=== PATIENT | female | born 1960 | race Caucasian/White ===

== ENCOUNTER 2021-08-14 18:22 | Inpatient (IN) ==
[2021-08-14] MEDS ORDERED: Naloxone 0.4 MG/ML INJ IVP PRN (22:14)
[2021-08-14] MEDS ORDERED: *HR* Heparin 5,000 UNIT/ML VIAL IVP ONE (22:57)
[2021-08-14] MEDS ORDERED: *HR* Heparin 5,000 UNIT/ML VIAL IVP PRN ×2 (22:57)
[2021-08-15] MEDS: Heparin 25,000UNIT/250ML 1/2NS 25,000 UNIT/250 ML IV.SOLN IVC SCH (00:49)
[2021-08-15] MEDS: Carbidopa/Levodopa 25/100 TABLET PO SCH ×4 (00:52→21:38)
[2021-08-15 00:59] LABS: INR 1.2; Prothrombin Time 12.9 Seconds (9.4-12.1)
[2021-08-15 01:05] LABS: Alanine Aminotransferase 7 Units/L (7-52); Albumin 3.8 g/dL (3.5-5.7); Albumin/Globulin Ratio 1.8 (1.1-2.2); Alkaline Phosphatase 114 Units/L (34-104); Aspartate Amino Transferase 19 Units/L (13-39); BUN/Creatinine Ratio 22 (6-26); Bilirubin,Total 0.3 mg/dL (0.3-1.0); Blood Urea Nitrogen 18 mg/dL (8-23); Calcium 9.3 mg/dL (8.6-10.3); Carbon Dioxide 28 mEq/L (23-29); Chloride 106 mEq/L (98-107); Globulin 2.1 g/dL (2.4-3.5); Glucose 86 mg/dL (70-105); Magnesium 1.7 mg/dL (1.6-2.6); Osmolality,Calculated 289 (280-300); Phosphorous 3.1 mg/dL (2.7-4.5); Potassium 3.5 mEq/L (3.5-5.1); Sodium 139 mEq/L (136-145); Total Protein 5.9 g/dL (6.4-8.9); eGFR For African Americans > 60 (> 60); eGFR For Non-African Americans > 60 (> 60)
[2021-08-15 01:21] LABS: Basophils % 0.5 %; Hematocrit 37.7 % (35.3-44.9); Mean Corpuscular Volume 92.9 fL (83.0-100.0); Red Blood Count 4.06 M/mcL (3.82-4.97)
[2021-08-15 01:23] LABS: Eosinophils # 0.1 K/mcL (0.0-0.6); Eosinophils % 1.6 %; Hemoglobin 12.7 g/dL (11.5-15.4); Immature Granulocytes % 0.1 % (0-4); Immature Platelets 16.9 % (1.1-6.1); Lymphocytes # 2.1 K/mcL (0.6-4.6); Lymphocytes % 25.8 %; Mean Corpuscular HGB Conc 33.7 g/dL (31.6-35.5); Mean Corpuscular Hemoglobin 31.3 pg (28.0-33.3); Mean Platelet Volume 14.1 fL (9.4-12.4); Monocytes # 0.5 K/mcL (0.0-1.3); Monocytes % 6.3 %; Neutrophils # 5.3 K/mcL (1.6-8.9); Platelet Count 192 K/mcL (140-400); Red Cell Distribution Width 11.8 % (11.5-14.5); Segmented Neutrophils % 65.7 %
[2021-08-15] MEDS: Aspirin 81 MG TAB.CHEW PO SCH (08:09)
[2021-08-15] MEDS: Famotidine 20 MG TABLET PO SCH (08:10)
[2021-08-15] MEDS: Nitroglycerin 0.4 MG TAB.SUBL SL PRN ×2 (11:33→11:39)
[2021-08-15] MEDS: Prochlorperazine 10 MG/2 ML VIAL IVP PRN (20:29)
[2021-08-15] MEDS: Melatonin 3 MG TABLET PO PRN (21:38)
[2021-08-16] MEDS: Heparin 25,000UNIT/250ML 1/2NS 25,000 UNIT/250 ML IV.SOLN IVC SCH (05:30)
[2021-08-16] MEDS: Carbidopa/Levodopa 25/100 TABLET PO SCH ×3 (09:15→19:51)
[2021-08-16] MEDS: Famotidine 20 MG TABLET PO SCH (09:15)
[2021-08-16] MEDS: Aspirin 81 MG TAB.CHEW PO SCH (09:15)
[2021-08-17] MEDS: Heparin 25,000UNIT/250ML 1/2NS 25,000 UNIT/250 ML IV.SOLN IVC SCH ×3 (06:58→09:51)
[2021-08-17] MEDS: Carbidopa/Levodopa 25/100 TABLET PO SCH ×3 (08:49→20:49)
[2021-08-17] MEDS: Famotidine 20 MG TABLET PO SCH (08:49)
[2021-08-17] MEDS: Aspirin 81 MG TAB.CHEW PO SCH (08:49)
[2021-08-17] MEDS: Melatonin 3 MG TABLET PO PRN (20:49)
[2021-08-18] MEDS: Famotidine 20 MG TABLET PO SCH (08:36)
[2021-08-18] MEDS: Carbidopa/Levodopa 25/100 TABLET PO SCH ×3 (08:36→20:00)
[2021-08-18] MEDS: Aspirin 81 MG TAB.CHEW PO SCH (08:36)
[2021-08-18] MEDS ORDERED: *HR* FentaNYL (PF) 100 MCG/2 ML VIAL ONE (10:12)
[2021-08-18] MEDS ORDERED: *HR* Heparin 10,000 UNIT/10 ML VIAL ONE (10:12)
[2021-08-18] MEDS ORDERED: Nitroglycerin 1,000 MCG/5 ML VIAL IV ONE (10:12)
[2021-08-18] MEDS ORDERED: ISOVUE-370 200 ML INFUS..BTL ONE (10:12)
[2021-08-18] MEDS ORDERED: Heparin 1,000 UNITS/500 mL 500 ML ONE (10:12)
[2021-08-18] MEDS ORDERED: *HR* Midazolam HCl 2 MG/2 ML VIAL ONE (10:12)
[2021-08-18] MEDS ORDERED: 0.9 % Sodium Chloride 1,000 ML ONE ×2 (10:12→10:14)
[2021-08-18] MEDS: Melatonin 3 MG TABLET PO PRN (20:00)
[2021-08-18] MEDS: Prochlorperazine 10 MG/2 ML VIAL IVP PRN (20:00)
[2021-08-19 06:22] VITALS: BP 142/75; PULSE 90; TEMP 98.5; O2SAT 97
[2021-08-19] MEDS: Heparin 25,000UNIT/250ML 1/2NS 25,000 UNIT/250 ML IV.SOLN IVC SCH (08:13)
[2021-08-19] MEDS: Aspirin 81 MG TAB.CHEW PO SCH (08:23)
[2021-08-19] MEDS: Carbidopa/Levodopa 25/100 TABLET PO SCH (08:23)
[2021-08-19] MEDS: Famotidine 20 MG TABLET PO SCH (08:23)
== END 2021-08-19 11:18 | disposition other institution (70) | DRG 287 ==
LOC: 3BNU
PROVIDERS: ADMIT Internal Medicine; ATTEND Internal Medicine